=== PATIENT | male | born 1960 | race Caucasian/White ===

== ENCOUNTER 2018-11-25 14:03 | Emergency (ER) | payer MEDICAID ==
[~2018-11-25] VITALS: Wt 84.8 kg
[2018-11-25] MEDS ORDERED: NICARDipine HCL 30 MG CAPSULE PO ONE ×2 (16:00→19:00)
[2018-11-25] MEDS ORDERED: OLAN5TAB5 PO ×2 (16:18→18:26)
[2018-11-25] MEDS ORDERED: LORA-444 PO (16:19)
[2018-11-25] MEDS ORDERED: ATEN50TA PO ×2 (16:19→18:26)
[2018-11-25] MEDS ORDERED: AMLO5TAB4 PO ×2 (16:19→18:26)
[2018-11-25] MEDS ORDERED: OMEP20CA16 PO (16:20)
[2018-11-25] MEDS ORDERED: LISI40TA3 PO ×2 (16:20→18:26)
--- NOTE | 2018-11-25 18:25 | ERD ---
ER Documentation Chief Complaint Chief Complaint MD ref: HTN. needs psych meds, family request for SW. hx schizo HPI This is a 58-year-old male who is here with his family and he was sent by his psychiatrist because he is out of his blood pressure medications. The patient is not suicidal or homicidal. He has had a history of anxiety in the past and he says that he ran out of his blood pressure meds and has been taking them for a while. Says he takes Ativan regularly for anxiety and has not had it today either. He has no physical complaints and is here for medication refills and he is trying to get disability from the ER physician, myself. Does not have a primary care physician anymore. He is here also because he was told the ER could help facilitate him getting Medicaid ROS All systems reviewed and are negative except as per history of present illness. Medications Home Meds Reported Medications Omeprazole* (Omeprazole*) 20 Mg Capsule.dr, 40 MG PO DAILY, #30 CAP 11/25/18 Lisinopril* (Lisinopril*) 40 Mg Tablet, 40 MG PO DAILY, #30 TAB 11/25/18 Atenolol* (Atenolol*) 50 Mg Tablet, 50 MG PO DAILY, #30 TAB 11/25/18 Amlodipine Besylate* (Norvasc*) 5 Mg Tablet, 5 MG PO DAILY, TAB 11/25/18 Lorazepam* (Ativan*) 2 Mg Tablet, 2 MG PO HS PRN for NEEDED, #30 TAB 11/25/18 Olanzapine* (Zyprexa*) 5 Mg Tablet, 5 MG PO DAILY, #30 TAB 11/25/18 Allergies Allergies: Coded Allergies: Penicillins (Unverified Allergy, Unknown, 11/25/18) PMhx/Soc History of Surgery: Yes (r. foot, r. knee replcmt, r. hip) Hx Psychiatric Problems: Yes (anxiety, schizo) Hx Miscellaneous Medical Probl: Yes (hep C) Hx Alcohol Use: Yes (daily) Hx Substance Use: No Hx Tobacco Use: No Smoking Status: Never smoker FmHx Family History: No coronary disease Physical Exam Vitals Vital Signs Date Temp Pulse Resp B/P (MAP) Pulse Ox O2 O2 Flow FiO2 Time Delivery Rate 11/25/18 98.2 129 20 141/82 99 Room Air 17:22 (101) 11/25/18 94 16 163/112 98 Room Air 15:59 (129) 11/25/18 98.4 66 18 222/121 99 14:18 (154) Physical Exam Const: Well-developed, well-nourished Head: Atraumatic, normocephalic Eyes: Normal Conjunctiva, PERRLA, EOMI, normal sclera, no nystagmus ENT: Normal External Ears, Nose and Mouth, moist mucus membranes. Neck: Full range of motion. No meningismus, no lymphadenopathy. Resp: Clear to auscultation bilaterally, no wheezing, rhonchi, rales Cardio: Regular rate and rhythm, no murmurs, S1 S2 present Abd: Soft, non tender x 4, non distended. Normal bowel sounds, no guarding or rebound, no pulsitile abdominal masses or bruits Skin: No petechiae or rashes, no ecchymosis , no maculopapular rash Back: No midline or flank tenderness Ext: No cyanosis, or edema, FROM x 4, normal inspection, neurovas cularly intact x 4 Neur: Awake and alert, STR 5/5 x 4, sensation intact x 4, no focal findings, cerebellum intact Psych: Slightly anxious but denies homicidal or suicidal thoughts or ideation Result Diagram: 11/25/18 1559 11/25/18 1559 Results 24 hrs Laboratory Tests Test 11/25/18 15:59 White Blood Count 9.0 10^3/ul Red Blood Count 5.54 10^6/ul Hemoglobin 19.3 g/dl Hematocrit 53.8 % Mean Corpuscular Volume 97.1 fl Mean Corpuscular Hemoglobin 34.8 pg Mean Corpuscular Hemoglobin Concent 35.9 g/dl Red Cell Distribution Width 12.7 % Platelet Count 182 10^3/UL Mean Platelet Volume 9.2 fl Immature Granulocytes % 0.300 % Neutrophils % 65.5 % Lymphocytes % 24.3 % Monocytes % 8.4 % Eosinophils % 0.4 % Basophils % 1.1 % Nucleated Red Blood Cells % 0.0 /100WBC Immature Granulocytes # 0.030 10^3/ul Neutrophils # 5.9 10^3/ul Lymphocytes # 2.2 10^3/ul Monocytes # 0.8 10^3/ul Eosinophils # 0.0 10^3/ul Basophils # 0.1 10^3/ul Nucleated Red Blood Cells # 0.0 10^3/ul Sodium Level 140 mmol/L Potassium Level 3.9 mmol/L Chloride Level 98 mmol/L Carbon Dioxide Level 24 mmol/L Anion Gap 18 Blood Urea Nitrogen 11 mg/dl Creatinine 1.06 mg/dl Est Glomerular Filtrat Rate mL/min > 60 mL/min Glucose Level 94 mg/dl Calcium Level 10.1 mg/dl Current Medications Medications Dose Sig/Becky Start Time Status Last (Trade) Ordered Route PRN Stop Time Admin Dose Reason Admin Nicardipine 30 mg ONCE ONCE 11/25/18 DC 11/25/18 HCl PO 16:00 11/25/18 16:14 (Cardene) 16:01 Lorazepam 1 mg ONCE ONCE 11/25/18 (Ativan) IM 18:30 11/25/18 18:31 Procedures/MDM We have the social work program coordinator speak with this patient and she was able to get him emergency insurance to fill his medications. He is been out of his lisinopril, Norvasc, Zyprexa and a atenolol. The patient's heart rate did spike into the 120s and when I evaluated him for this he said he felt fine cardiovascularly however he says he feels really anxious and he feels like he needs his Ativan which she had not taken today yet. I will give him a milligram of Ativan IM and if his heart rate comes back down he feels more calm will discharge home with refills. Will refer him to family practice and he has insurance now to fill his meds Departure Diagnosis: Primary Impression: Uncontrolled hypertension Additional Impressions: Medication refill Anxiety Condition: Stable MARYLU MORENO DO Nov 25, 2018 18:25
[2018-11-25] MEDS ORDERED: LORAZEPAM 2 MG INJ IM ONE (18:30)
[2018-11-25 19:35] VITALS: BP 138/93; PULSE 111; RESP 22
== END 2018-11-25 19:35 | disposition home or self-care (01) ==
LOC: E/R 14:03
DX: I10 Essential (primary) hypertension (principal); F41.9 Anxiety disorder, unspecified; Z76.0 Encounter for issue of repeat prescription; Z96.651 Presence of right artificial knee joint
CPT/HCPCS: 80048; 85025; 96372; J2060; Z7502; Z7610